=== PATIENT | male | born 1990 | race Hispanic/Latino ===

== ENCOUNTER 2016-12-15 20:59 | Emergency (ER) | payer OTHER ==
[~2016-12-15] VITALS: Ht 185.4 cm; Wt 79.0 kg
[2016-12-15 21:03] VITALS: BP 121/73; RESP 16; O2SAT 97
--- NOTE | 2016-12-15 21:16 | ED.REPORT ---
HPI-Ear Pain/Problem/FB Date of Service December 15, 2016 ED Provider: Slim Aleman MD The patient is a 26 year old male who presents to the ED with an abscess in the right inner ear onset 6 days ago. The abscess initially increased in size and has since decreased slightly with mild drainage and bleeding. Pt denies any ear pain, fever, cold symptoms, or any other symptoms. Nursing Notes Stated Complaint: BUMP IN RIGHT EAR Chief Complaint: ENT & Mouth Nursing Notes Reviewed: Yes Allergies: Coded Allergies: No Known Allergies (Unverified , 12/15/16) General Time Seen by MD: 21:15 Chief Complaint Other (abscess right inner ear) Hx Obtained From: Patient Arrived By: Walk-in Onset Occurred: 6 days ago Symptom Duration: Since onset Location: : Inner ear Severity: Current: No pain currently Recent Healthcare: No recent doctor visit, No recent hospitalization Similar Sx Previous: No Past Medical History Past Medical History healthy Past Surgical History healthy Smoking History Unknown if Ever Smoker Social History Other Social History: Local resident Ambulatory Status Independent Review of Systems Constitutional: Denies: Chills, Fever Ears / Nose / Throat: Reports: Ear drainage right, Denies: Ear drainage left, Earache left, Earache right, Nasal congestion, Sinus problem, Throat pain, Throat swelling Complete sys rev & neg: except as marked. Additional Review of Systems Respiratory: Denies: Non-productive cough Physical Exam Physical Exam Notes: Initial Vital Signs Vital Signs (First) Date Time Temp Pulse Resp B/P Pulse Ox O2 Delivery O2 Flow Rate FiO2 12/15/16 21:03 36.6 76 16 121/73 97 Room Air Initial VS: Reviewed Respiratory: No respiratory distress Back: No CVA tenderness Extremities: Vascular intact, Neuro intact, No swelling, No tenderness Skin: Warm, Dry Neurologic: Alert, Oriented General/Constitutional: Awake, Alert, Cooperative, Not toxic appearing ENT: Mucous membranes moist draining abscess on the verge of the external aduitory canal on right right TM normal left ear normal Head / Eyes: Atraumatic, Normocephalic, PERRL, EOMI Neck: Atraumatic, Supple, No meningismus Re-Eval/Medical Decision Counseled Regarding: Diagnosis, Lab results, Need for follow-up, When/why to return to ED Discharge & Departure Primary Impression: Abscess Disposition: Home Discharge Condition All VS Reviewed: Yes Condition: Stable Patient Instructions: Abscess (ED) Additional Instructions: This is a simple skin infection with a small abscess in the right ear canal. Use a moist, hot wash compress on the abscess 2-3 times a day. I am sending you home with a course of antibiotics. Follow up with the firearms instructor I have given you, if your symptoms do not improve by next week. Return to the Emergency Department for any new or worsening symptoms including any signs of infection such as redness, warmth, swelling, drainage, and fever. I hope you feel better soon! Referrals: Elfego Cuellar MD [facility] Scribe Attestation Portion of this note were transcribed by Imelda Boswell. I, Dr. Slim Aleman, personally performed the history, physical exam, and medical decision-making: I reviewed and confirmed the accuracy for the information in the transcribed note. Signed by: kris De Los Santos, 12/15/16 [id number] copies to: Elfego Cuellar MD, Kirk H MD December 15, 2016 21:16 Imelda Boswell December 15, 2016 21:28
[2016-12-15] MEDS ORDERED: Trimethoprim-Sulfa 160 mg-800 mg Tablet PO ONE (21:30)
[2016-12-15] MEDS ORDERED: _Trimethoprim-Sulfa 160/800 mg Tablet PO SCH (21:35)
[2016-12-15 21:55] VITALS: BP 128/96; PULSE 72; RESP 18; O2SAT 100
== END 2016-12-15 21:47 | disposition home or self-care (01) ==
LOC: SED 20:59
DX: H60.01 Abscess of right external ear (principal)